=== PATIENT | female | born 2000 | race Caucasian/White ===

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

== ENCOUNTER 2023-01-25 18:27 | Emergency (ER) | payer MEDICAID, OTHER ==
[~2023-01-25] VITALS: Ht 160 cm; Wt 90.0 kg
[~2023-01-25 18:27] MED LIST changes: -DORZ10DR7 EACHEYE; +DORZ10DR8 EACHEYE; +LISI10TA26 PO; -LISI10TA5 PO
[2023-01-25 18:46] VITALS: BP 129/81
== END 2023-01-25 21:50 | disposition left against medical advice (07) ==
LOC: ER 18:27
DX: R10.13 Epigastric pain (principal); Z53.21 Procedure and treatment not carried out due to patient leaving prior to being seen by health care provider
CPT/HCPCS: 99281

== ENCOUNTER 2023-03-30 11:05 | Emergency (ER) | payer OTHER ==
[~2023-03-30] VITALS: Ht 152.4 cm; Wt 91.0 kg
[2023-03-30] MEDS ORDERED: SODIUM CHLORIDE 0.9% 1,000 ML IV ONE (11:45)
[2023-03-30 11:50] LABS: CLARITY URINE CLEAR (CLEAR); COLOR URINE YELLOW (YELLOW); KETONES URINE NEGATIVE (NEGATIVE); LEUKOCYTE ESTERASE URINE NEGATIVE (NEGATIVE); NITRITE URINE NEGATIVE (NEGATIVE); OCCULT BLOOD URINE TRACE (NEGATIVE); PH URINE 5.5 (4.5-8.0); PROTEIN URINE 1+ (NEGATIVE); SPECIFIC GRAVITY URINE 1.025 (1.005-1.030); UROBILINOGEN URINE 0.2 E.U./dL (0.2-1.0)
[2023-03-30 12:33] LABS: BASOPHILS % 0.8 % (0.0-2.0); EOSINOPHILS % 0.8 % (0.0-5.0); HEMATOCRIT. 36.9 % (36.0-48.0); HEMOGLOBIN. 12.3 g/dL (12.0-16.0); LYMPHOCYTES % 9.4 % (20.0-50.0); MEAN CORPUSCULAR HEMOGLOBIN 28.6 pg (28.0-32.0); MEAN CORPUSCULAR VOLUME 85.6 fL (81.0-99.0); MONOCYTES % 5.9 % (2.0-8.0); NEUTROPHILS % 83.1 % (40.0-76.0); PLATELET 410 x1000/uL (130-400); RED BLOOD CELL COUNT 4.31 mill/uL (4.2-5.4); RED CELL DISTRIBUTION WIDTH 15.7 % (11.6-14.6)
[2023-03-30 12:45] LABS: CHLORIDE 104 mEq/L (98-107)
[2023-03-30 12:48] LABS: PROTHROMBIN TIME 10.3 sec (9.6-11.0)
[2023-03-30 12:57] LABS: ETHANOL BLOOD < 10 mg/dL
[2023-03-30 13:06] LABS: BETA HYDROXYBUTYRATE <0.1 mMol/L mMol/L (0.0-0.3)
[2023-03-30 16:01] VITALS: BP 126/71
== END 2023-03-30 16:32 | disposition short-term general hospital (02) ==
LOC: ER 11:15
DX: K85.90 Acute pancreatitis without necrosis or infection, unspecified (principal); E11.65 Type 2 diabetes mellitus with hyperglycemia; E66.9 Obesity, unspecified; Z68.39 Body mass index [BMI] 39.0-39.9, adult
CPT/HCPCS: 36415; 80053; 80320; 81003; 82010; 83690; 84478; 84484; 85025; 85610; 96360; 99285; J7030; Z7610; G0480

== ENCOUNTER 2025-10-06 12:13 | Emergency (ER) | payer OTHER ==
[~2025-10-06] VITALS: Ht 152.4 cm; Wt 118.0 kg
[2025-10-06 12:20] VITALS: O2SAT 100
[2025-10-06 13:16] LABS: HEMATOCRIT. 40.0 % (36.0-48.0); HEMOGLOBIN. 12.7 g/dL (12.0-16.0); MEAN PLATELET VOLUME 8.8 fl (7.4-10.4); PLATELET 395 x1000/uL (130-400); RED BLOOD CELL COUNT 4.73 mill/uL (4.2-5.4); RED CELL DISTRIBUTION WIDTH 16.7 % (11.6-14.6)
[2025-10-06 13:27] LABS: CREATININE 1.0 mg/dL (0.6-1.0)
[2025-10-06 13:28] LABS: UREA NITROGEN BLOOD 10 mg/dL (9-23)
[2025-10-06 13:29] LABS: ASPARTATE AMINOTRANSFERASE 23 IU/L (<34)
[2025-10-06 13:30] LABS: BILIRUBIN DIRECT < 0.1 mg/dL (<=3.0); BILIRUBIN TOTAL 0.3 mg/dL (0.1-1.0); PROTEIN TOTAL 7.7 g/dL (6.0-8.3)
[2025-10-06 13:36] LABS: HCG SCREEN NEGATIVE
[2025-10-06 13:40] VITALS: TEMP 36.8
[2025-10-06] MEDS: KETOROLAC 15MG/ML VIAL IV ONE (13:40)
[2025-10-06] MEDS: ONDANSETRON HCL 4MG/2ML INJ IV ONE ×2 (13:40→15:15)
[2025-10-06] MEDS: SODIUM CHLORIDE 0.9% 1,000 ML IV ONE ×2 (13:40→15:15)
[2025-10-06] MEDS: MORPHINE SULFATE 4 MG/ML INJ (FOR IV/IM USE) IV ONE (15:15)
[2025-10-06 18:40] VITALS: BP 106/85; PULSE 105; RESP 13; O2SAT 100
[2025-10-06 20:55] LABS: LYMPHOCYTES % MANUAL 8.0 % (20.0-60.0); MONOCYTES % MANUAL 6.0 % (2.0-8.0); NEUTROPHILS % MANUAL 86.0 % (45.0-75.0); PLATELET ESTIMATE NORMAL
== END 2025-10-06 18:40 | disposition left against medical advice (07) ==
LOC: ER 12:13 → EDBEDREQTM 17:01 → EDBEDREQ 17:01 → ER 18:40 → CMPBEDREQ 10-07 07:19
DX: K85.90 Acute pancreatitis without necrosis or infection, unspecified (principal); E10.9 Type 1 diabetes mellitus without complications; I10 Essential (primary) hypertension; Z79.899 Other long term (current) drug therapy
CPT/HCPCS: 80076; 80048; 84703; 83690; 85025; 36415; 76705; 96361; 96374; 96375; 99285; J1885; J2405; J7030; Z7610